=== PATIENT | male | born 1955 | race Caucasian/White ===

== ENCOUNTER 2024-10-11 09:22 | Emergency (ER) | payer MEDICARE, OTHER, SELFPAY ==
[2024-10-11 09:34] VITALS: BP 167/97; PULSE 86; TEMP 36.8; O2SAT 95; BMI 26.6
--- NOTE | 2024-10-11 09:41 | ECG_ITS ---
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 Measurements Intervals [place] Rate: 88 P: 17 PA: 148 QRS: 26 QRSD: 82 T: 47 QT: 328 QTc: 373 Interpretive Statements 1100 Sinus rhythm 4068 Nonspecific Twave abnormality Abnormal ECG Compared to ECG 01/19/2019 22:28:14 Sinus tachycardia no longer present ST (T wave) deviation no longer present Electronically Signed On 10-11-2024 11:56:11 EDT by GABI SHANNON M.D.
--- NOTE | 2024-10-11 09:41 | XR_ITS ---
The [place] [id number] Patient Name: LESLIE MAN MRN: [id number] date: 1955 Sex: M Assigned Patient Location: ER Current Patient Location: ER Accession/Order Number: [id number] Exam Date: 10/11/2024 10:09 Report Date: 10/11/2024 10:12 At the request of: AMAN PERALES MD Procedure: XR chest 1V PORTABLE AP ERECT CHEST 0947 hours CLINICAL HISTORY: Weakness COMPARISON: Chest CT 01/12/2019 and chest x-ray 01/19/2019 The heart is within normal limits. There is no vascular congestion. The lungs, as visualized, are clear. There is no effusion or pneumothorax. The osseous structures are intact. XR/XR chest 1V IMPRESSION: NO ACUTE FINDINGS Impression dictated by: Apurva Velarde M.D.10/11/2024 10:12 AM Dictation Location: [place] [address] Electronically authenticated by: [id number] Y Date: 10/11/2024 10:12
--- NOTE | 2024-10-11 09:42 | ED.GENADUL1 ---
HPI HPI - General Adult General Chief complaint: Weakness Stated complaint: weakness Time Seen by Provider: 10/11/24 09:24 Source: patient Mode of arrival: walk-in History of Present Illness HPI narrative: 69-year-old male presents for generalized weakness. It began last night. His checked his temperature during the middle of the night and it was 100.8. He does not have a cough or chest pain. No abdominal pain vomiting or diarrhea. No dysuria or hematuria. He states his whole body just feels weak. His is not ill. He does not have any pain anywhere. Related Data Home Medications ?Medication ?Instructions ?Recorded ?Confirmed aspirin 81 mg tablet,delayed 81 mg PO DAILY 10/11/24 10/11/24 release (Adult Aspirin Regimen) bisoprolol 5 1 tab PO DAILY 10/11/24 10/11/24 mg-hydrochlorothiazide 6.25 mg tablet coenzyme Q10 100 mg capsule (Co 100 mg PO DAILY 10/11/24 10/11/24 Q-10) ezetimibe 10 mg tablet 10 mg PO DAILY 10/11/24 10/11/24 glipizide 10 mg tablet, extended 10 mg PO DAILY 10/11/24 10/11/24 release 24 hr losartan 100 mg tablet 100 mg PO DAILY 10/11/24 10/11/24 metformin 1,000 mg tablet 1,000 mg PO BID 10/11/24 10/11/24 mometasone-formoterol HFA 100 2 inh inhalation Q12H 10/11/24 10/11/24 mcg-5 mcg/actuation aerosol inhaler (Dulera) montelukast 10 mg tablet 10 mg PO DAILY 10/11/24 10/11/24 omeprazole 40 mg capsule,delayed 40 mg PO DAILY 10/11/24 10/11/24 release prednisone 10 mg tablet 10 mg PO Q12H 10/11/24 10/11/24 Allergies Allergy/AdvReac Type Severity Reaction Status Date / Time [id number] Reductase AdvReac Muscle Pain Verified 10/11/24 09:30 Inhibitor Opioid HPI Opioid Management Most Recent Opioid Data: No Data to Display Review of Systems ROS Narrative A ten point review of systems is negative except as noted above. PFSH PFSH Social History Little interest or pleasure in doing things: not at all Feeling down, depressed, or hopeless: not at all Exam Narrative Exam Narrative: Nurses note and vital signs reviewed and patient is not hypoxic. General: The patient appears well and in no apparent distress. Patient is resting comfortably on cart. Skin: Warm, dry, no pallor noted. There is no rash noted. Head: Normocephalic, atraumatic Eye: Normal conjunctiva, no drainage Ears, Nose, Mouth, and Throat: oral mucosa is moist. Nares patent. Cardiovascular: Regular Rate and Rhythm Respiratory: Patient is in no distress, no accessory muscle use, lungs are clear to auscultation, no wheezing, rales or rhonchi Back: non-tender GI: Soft and nontender Musculoskeletal: The patient has no evidence of calf tenderness, no pitting edema, symmetrical pulses noted bilaterally Neurological: A&O, normal speech Psychiatric: Cooperative Constitutional Vital Signs, click to edit/add: Last Vital Signs Temp 98.2 F 10/11/24 09:34 Pulse 86 10/11/24 09:34 Resp 20 10/11/24 09:34 BP 167/97 H 10/11/24 09:34 Pulse Ox 95 10/11/24 09:34 O2 Del Method Room Air 10/11/24 09:34 Course Vital Signs Vital signs: Vital Signs Temperature 98.2 F 10/11/24 09:34 Pulse Rate 86 10/11/24 09:34 Respiratory Rate 20 10/11/24 09:34 Blood Pressure 167/97 H 10/11/24 09:34 Pulse Oximetry 95 10/11/24 09:34 Oxygen Delivery Method Room Air 10/11/24 09:34 Temperature 98.2 F 10/11/24 09:34 Pulse Rate 86 10/11/24 09:34 Respiratory Rate 20 10/11/24 09:34 Blood Pressure 167/97 H 10/11/24 09:34 Pulse Oximetry 95 10/11/24 09:34 Oxygen Delivery Method Room Air 10/11/24 09:34 Medical Decision Making MDM Narrative Medical decision making narrative: His workup here is negative. COVID and influenza test are negative as is his urinalysis and white blood cell count and chest x-ray. At this point my clinical impression is that he has a viral illness. Treatment diagnosis and follow-up were discussed with the patient and his . Differential Diagnosis Differential Diagnosis: Viral illness, pneumonia, UTI, COVID, influenza Lab Data Lab results reviewed: Yes I reviewed the patient's lab results Labs: Lab Results 10/11/24 10/11/24 Range/Units 09:50 11:05 WBC 5.7 (4.0-11.0) 10^3/uL RBC 4.88 (4.70-6.10) 10^6/uL Hgb 14.1 (14.0-18.0) g/dL Hct 40.3 L (42.0-54.0) % MCV 82.6 (80.0-94.0) fL MCH 28.9 (25.9-34.0) pg MCHC 35.0 (29.9-35.2) g/dL RDW 12.8 (11.0-15.0) % Plt Count 124 L (150-450) 10^3/uL MPV 8.6 L (9.5-13.5) fL Neut % (Auto) 76.8 H (43.0-75.0) % Lymph % (Auto) 9.3 L (20.5-60.0) % [place] % (Auto) 10.7 (1.7-12.0) % Eos % (Auto) 0.0 L (0.9-7.0) % Baso % (Auto) 0.4 (0.2-2.0) % Neut # (Auto) 4.4 (1.4-6.5) 10^3/uL Lymph # (Auto) 0.5 L (1.2-3.8) 10^3/uL [place] # (Auto) 0.6 (0.3-0.8) 10^3/uL Eos # (Auto) 0.0 (0.0-0.7) 10^3/uL Baso # (Auto) 0.0 (0.0-0.1) 10^3/uL Abs Immat Gran (auto) 0.16 H (0.00-0.03) 10^3/uL Imm/Tot Granulo (auto) 2.8 H (0.0-0.5) % Sodium 138 (136-145) mmol/L Potassium 3.9 (3.5-5.1) mmol/L Chloride 102 (98-107) mmol/L Carbon Dioxide 27.4 (21.0-32.0) mmol/L Anion Gap 12.5 BUN 27.0 H (7.0-18.0) mg/dL Creatinine 1.33 H (0.70-1.30) mg/dL Est GFR ( Amer) >60 (>=60 mL/min/1.73m^2) Est GFR (Non-Af Amer) 53 L (>=60 mL/min/1.73m^2) BUN/Creatinine Ratio 20.3 Glucose 125 H (74-106) mg/dL Calcium 9.5 (8.5-10.1) mg/dL Urine Color Yellow (YELLOW) Urine Clarity Clear (CLEAR) Urine pH 6.0 (5.0-9.0) Ur Specific [place] 1.020 (1.005-1.025) Urine Protein 30 A (NEG/TRACE) mg/dL Urine Glucose (UA) Negative (NEGATIVE) mg/dL Urine Ketones Trace A (NEGATIVE) mg/dL Urine Occult Blood Trace-i (NEGATIVE) Urine Nitrite Negative (NEGATIVE) Urine Bilirubin Negative (NEGATIVE) Urine Urobilinogen 2.0 A (0.2-1.0) EU/dL Ur Leukocyte Esterase Negative (NEGATIVE) Influenza Type A Ag Negative Influenza Type B Ag Negative SARS-CoV-2 Ag (CV2AG) Negative (NEGATIVE) Imaging Data Chest x-ray: Radiologist's impression: ITS Impressions Chest X-Ray 10/11/24 09:41 IMPRESSION: NO ACUTE FINDINGS Impression dictated by: Apurva Velarde M.D.10/11/2024 10:12 AM Dictation Location: [place] [address] Electronically authenticated by: [id number] Y Date: 10/11/2024 10:12 ECG Data Attestation: I personally reviewed and interpreted this ECG as follows: (EKG on my interpretation shows sinus rhythm with rate of 88 and no acute change) Discharge Plan Discharge Chief Complaint: Weakness Clinical Impression: Viral illness Patient Disposition: Home, Self-Care Time of Disposition Decision: 11:23 Condition: Good Mode of Transportation: Private Vehicle Prescriptions / Home Meds: No Action bisoprolol-hydrochlorothiazide 5-6.25 mg tablet 1 tab PO DAILY ezetimibe 10 mg tablet 10 mg PO DAILY glipizide 10 mg tablet extended release 24hr 10 mg PO DAILY losartan 100 mg tablet 100 mg PO DAILY metformin 1,000 mg tablet 1,000 mg PO BID Dulera 100-5 mcg/actuation HFA aerosol inhaler 2 inh INHALATION Q12H montelukast 10 mg tablet 10 mg PO DAILY omeprazole 40 mg capsule,delayed release(DR/EC) 40 mg PO DAILY prednisone 10 mg tablet 10 mg PO Q12H Rx Instructions: for 21 days for inflammation in foot aspirin [Adult Aspirin Regimen] 81 mg tablet,delayed release (DR/EC) 81 mg PO DAILY coenzyme Q10 [Co Q-10] 100 mg capsule 100 mg PO DAILY Print Language: Lithuanian Instructions: Viral Syndrome (ED) Referrals: CHECO SWAN [Primary Care Provider] - 1 week
[2024-10-11] MEDS: 0.9 % SODIUM CHLORIDE 1,000 ML 1000 ML IV (09:58)
[2024-10-11] MEDS: ONDANSETRON PF 4 MG/2 ML VIAL IV (09:59)
[2024-10-11 10:03] LABS: Basophils Percent Auto 0.4 % (0.2-2.0); Hematocrit 40.3 % (42.0-54.0); Hemoglobin 14.1 g/dL (14.0-18.0); Immature Granulocytes Abs Auto 0.16 10^3/uL (0.00-0.03); Immature Granulocytes Pct Auto 2.8 % (0.0-0.5); Lymphocytes Absolute Auto 0.5 10^3/uL (1.2-3.8); Lymphocytes Percent Auto 9.3 % (20.5-60.0); Mean Corpuscular Hemoglobin 28.9 pg (25.9-34.0); Mean Corpuscular Volume 82.6 fL (80.0-94.0); Mean Platelet Volume 8.6 fL (9.5-13.5); Monocytes Absolute Auto 0.6 10^3/uL (0.3-0.8); Monocytes Percent Auto 10.7 % (1.7-12.0); Neutrophils Absolute Auto 4.4 10^3/uL (1.4-6.5); Neutrophils Percent Auto 76.8 % (43.0-75.0); Platelet Count 124 10^3/uL (150-450); Red Blood Count 4.88 10^6/uL (4.70-6.10); Red Cell Distribution Width 12.8 % (11.0-15.0); White Blood Count 5.7 10^3/uL (4.0-11.0)
[2024-10-11 10:14] LABS: Anion Gap 12.5; BUN Creatinine Ratio 20.3; Calcium 9.5 mg/dL (8.5-10.1); Carbon Dioxide 27.4 mmol/L (21.0-32.0); Chloride 102 mmol/L (98-107); Estimated GFR (African America >60 (>=60 mL/min/1.73m^2); Estimated GFR (Non-African Ame 53 (>=60 mL/min/1.73m^2); Glucose 125 mg/dL (74-106); Potassium 3.9 mmol/L (3.5-5.1); Sodium 138 mmol/L (136-145)
[2024-10-11 10:17] LABS: Influenza Virus A Antigen Negative; Influenza Virus B Antigen Negative; Internal Control Within Normal Limits; SARS-CoV-2 Ag NEGATIVE (NEGATIVE)
[2024-10-11 11:12] LABS: Bilirubin Urine NEGATIVE (NEGATIVE); Blood Urine TRACE-I (NEGATIVE); Clarity Urine CLEAR (CLEAR); Color Urine YELLOW (YELLOW); Glucose Urine UA NEGATIVE (NEGATIVE); Ketones Urine TRACE mg/dL (NEGATIVE); Leukocyte Esterase Urine NEGATIVE (NEGATIVE); Nitrite Urine NEGATIVE (NEGATIVE); Protein Urine 30 mg/dL (NEG/TRACE)
[2024-10-11 11:28] LABS: Bacteria Urine NONE SEEN #/HPF (NONE SEEN); Cast Seen? NONE SEEN #/LPF (NONE SEEN); Crystals Seen? None Seen #/HPF (None Seen); Mucus Urine NONE SEEN (NONE SEEN); Squamous Epithelial Cell Urine NONE SEEN #/LPF (NONE/RARE); Urine Culture Indicated NO; WBC Urine 0-2 #/HPF (NONE SEEN)
== END 2024-10-11 11:32 | disposition home or self-care (01) ==
PROVIDERS: Emergency Provider Emergency Medicine; PCP Family Medicine
DX: B34.9 Viral infection, unspecified (principal)
CPT/HCPCS: 36415; 71045; 80048; 81001; 85025; 87804; 87811; 93005; 96374; 99285; J2405

== ENCOUNTER 2024-10-11 18:23 | Observation (INO) | payer MEDICARE, OTHER, SELFPAY ==
[2024-10-11] VITALS (23 sets, daily range): BP systolic 120–168; BP diastolic 61–99; PULSE 81–129; TEMP 36.6–37.1; O2SAT 91–95; BMI 28.1; BMI 27.8
--- NOTE | 2024-10-11 18:40 | ECG_ITS ---
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 Measurements Intervals [place] Rate: 95 P: 36 [place]: 130 QRS: 36 QRSD: 82 T: 55 QT: 314 QTc: 367 Interpretive Statements 1100 Sinus rhythm 9110 normal ECG Compared to ECG 10/11/2024 09:54:09 Nonspecific Twave abnormality is less evident Electronically Signed On 10-12-2024 14:36:30 EDT by GABI SHANNON M.D.
--- NOTE | 2024-10-11 18:45 | PC.NURSE ---
pt seen earlier for same complaint. but states he got home and weakness increased. states he couldn't get out of his chair at home and pee'd himself d/y not being able to make it to bathroom. denies any pain anywhere. denies any SOB, CP, vomiting or diarrhea. just feels tired . no fever at this time.
--- NOTE | 2024-10-11 18:53 | ED_ITS ---
HPI - Weakness General Chief complaint: Weakness Stated complaint: WEAKNESS Time Seen by Provider: 10/11/24 18:31 Source: patient Mode of arrival: ambulance History of Present Illness HPI Narrative: 69-year-old male presents to the emergency room with a chief complaint of weakness. Patient was brought to emergency room by squad. Patient was seen here earlier this morning had a complete workup including troponin, COVID, influenza and routine blood work. He was discharged home with diagnosis of viral illness. He states when he got home he got progressively more weak he feels ill and has chills. He had a low-grade fever at home subjectively of 100. He was afebrile here and afebrile upon arrival mission to the hospital this afternoon as well. He was brought in by squad. He states he was so weak he was unable to get up to urinate at home earlier today. Past medical includes type 2 diabetes and hypertension. Vital signs are stable here initially. He is alert and oriented. MD Complaint: Reports generalized weakness Related Data Home Medications ?Medication ?Instructions ?Recorded ?Confirmed aspirin 81 mg tablet,delayed 81 mg PO DAILY 10/11/24 10/11/24 release (Adult Aspirin Regimen) bisoprolol 5 1 tab PO DAILY 10/11/24 10/11/24 mg-hydrochlorothiazide 6.25 mg tablet coenzyme Q10 100 mg capsule (Co 100 mg PO DAILY 10/11/24 10/11/24 Q-10) ezetimibe 10 mg tablet 10 mg PO DAILY 10/11/24 10/11/24 glipizide 10 mg tablet, extended 10 mg PO DAILY 10/11/24 10/11/24 release 24 hr losartan 100 mg tablet 100 mg PO DAILY 10/11/24 10/11/24 metformin 1,000 mg tablet 1,000 mg PO BID 10/11/24 10/11/24 mometasone-formoterol HFA 100 2 inh inhalation Q12H 10/11/24 10/11/24 mcg-5 mcg/actuation aerosol inhaler (Dulera) montelukast 10 mg tablet 10 mg PO DAILY 10/11/24 10/11/24 omeprazole 40 mg capsule,delayed 40 mg PO DAILY 10/11/24 10/11/24 release prednisone 10 mg tablet 10 mg PO Q12H 10/11/24 10/11/24 Allergies Allergy/AdvReac Type Severity Reaction Status Date / Time [id number] Reductase AdvReac Muscle Pain Verified 10/11/24 09:30 Inhibitor Review of Systems ROS Status of ROS 10 or more systems reviewed and unremark able except as noted in history and below PFSH PFSH Social History Little interest or pleasure in doing things: not at all Feeling down, depressed, or hopeless: not at all Exam Narrative Exam Narrative: All Systems are negative except as noted/marked.All systems reviewed and otherwise negative Nurses note and vital signs reviewed and patient is not hypoxic. General: The patient appears ill, nonseptic. Patient is resting comfortably on cart. Skin: Warm, dry, no pallor noted. There is no rash noted. Head: Normocephalic, atraumatic Eye: Normal conjunctiva, no drainage, EOMI. PERRL Ears, Nose, Mouth, and Throat: oral mucosa is moist. Nares patent. Mouth without vesicles. Ear canals patent. Tm's without Erythema Cardiovascular: Regular Rate and Rhythm Respiratory: Patient is in no distress, no accessory muscle use, lungs are clear to auscultation, no wheezing, rales or rhonchi Back: non-tender, no CVA tenderness bilaterally to percussion. GI: Normal bowel sounds, no tenderness to palpation, no masses appreciated. No rebound, guarding, or rigidity noted. Musculoskeletal: The patient has no evidence of calf tenderness, no pitting edema, symmetrical pulses noted bilaterally Neurological: A&O x4, normal speech Psychiatric: Cooperative Constitutional Vital Signs, click to edit/add: Last Vital Signs Temp 98.7 F 10/11/24 18:24 Pulse 106 H 10/11/24 18:24 Resp 18 10/11/24 18:24 BP 155/97 H 10/11/24 18:24 Pulse Ox 93 L 10/11/24 18:24 O2 Del Method Room Air 10/11/24 18:24 Course Vital Signs Vital signs: Vital Signs Temperature 98.7 F 10/11/24 18:24 Pulse Rate 106 H 10/11/24 18:24 Respiratory Rate 18 10/11/24 18:24 Blood Pressure 155/97 H 10/11/24 18:24 Pulse Oximetry 93 L 10/11/24 18:24 Oxygen Delivery Method Room Air 10/11/24 18:24 Temperature 98.7 F 04/18/25 18:24 Pulse Rate 106 H 10/11/24 18:24 Respiratory Rate 18 10/11/24 18:24 Blood Pressure 155/97 H 10/11/24 18:24 Pulse Oximetry 93 L 10/11/24 18:24 Oxygen Delivery Method Room Air 10/11/24 18:24 MDM - Weakness MDM Narrative Medical decision making narrative: 69-year-old male presents to the emergency room with a chief complaint of weakness. Patient was brought to emergency room by squad. Patient was seen here earlier this morning had a complete workup including troponin, COVID, influenza and routine blood work. He was discharged home with diagnosis of viral illness. He states when he got home he got progressively more weak he feels ill and has chills. He had a low-grade fever at home subjectively of 100. He was afebrile here and afebrile upon arrival mission to the hospital this afternoon as well. He was brought in by squad. He states he was so weak he was unable to get up to urinate at home earlier today. Past medical includes type 2 diabetes and hypertension. Vital signs are stable here initially. He is alert and oriented. Patient was brought to the emergency room by squad for a second visit here today. Blood work was repeated. BUN and creatinine are elevated. sodium sodium decreased from 138-135 from being here earlier today. Were also drawn and continue to be negative EKG was negative here as well chest x-ray was not r epeated I did review the chest x-ray from earlier this morning does not appear to have any infiltrates was read negative by radiology. Patient will be admitted for dehydration hyponatremia and weakness. He was given a repeat dose of fluids here in the emergency room. Patient will be admitted to the floor in telemetry. Follow-up with hospitalist. Did speak to Kaitlynn concerning this patient's care. Patient and family was agree with plan of care. Patient is currently stable afebrile. Differential Diagnosis Differential diagnosis: Likely dehydration and other Medical Records Attestation: I reviewed the patient's medical records. Lab Data Attestation: I reviewed the patient's lab results. Labs: Lab Results 10/11/24 Range/Units 18:47 WBC 5.6 (4.0-11.0) 10^3/uL RBC 4.72 (4.70-6.10) 10^6/uL Hgb 13.5 L (14.0-18.0) g/dL Hct 39.0 L (42.0-54.0) % MCV 82.6 (80.0-94.0) fL MCH 28.6 (25.9-34.0) pg MCHC 34.6 (29.9-35.2) g/dL RDW 13.0 (11.0-15.0) % Plt Count 112 L (150-450) 10^3/uL MPV 8.8 L (9.5-13.5) fL Seg Neuts % (Manual) 81.0 H (43.0-75.0) Band Neutrophils % 2.0 (0-5) % Lymphocytes % (Manual) 7.0 L (20.5-60.0) % Monocytes % (Manual) 9.0 (1.7-12.0) % Eosinophils % (Manual) 0.0 L (0.9-7.0) % Basophils % (Manual) 0.0 L (0.2-2.0) % Metamyelocytes % 1.0 Neutrophils # (Manual) 4.53 (1.4-6.5) 10^3/uL Band Neutrophils # 0.1 (0.0-0.3) 10^3/uL Lymphocytes # (Manual) 0.39 L (1.20-3.80) 10^3/uL Monocytes # (Manual) 0.50 (0.30-0.80) 10^3/uL Eosinophils # (Manual) 0.00 (0.00-0.70) 10^3/uL Basophils # (Manual) 0.00 (0.00-0.10) 10^3/uL Metamyelocytes # 0.05 PT 11.8 H (9.0-11.6) sec INR 1.13 APTT 25.8 (22.3-36.2) sec Sodium 135 L (136-145) mmol/L Potassium 4.0 (3.5-5.1) mmol/L Chloride 100 (98-107) mmol/L Carbon Dioxide 26.1 (21.0-32.0) mmol/L Anion Gap 12.9 BUN 26.0 H (7.0-18.0) mg/dL Creatinine 1.34 H (0.70-1.30) mg/dL Est GFR ( Amer) >60 (>=60 mL/min/1.73m^2) Est GFR (Non-Af Amer) 53 L (>=60 mL/min/1.73m^2) BUN/Creatinine Ratio 19.4 Glucose 169 H (74-106) mg/dL Lactate 0.9 (0.4-2.0) mmol/L Calcium 8.9 (8.5-10.1) mg/dL Total Bilirubin 1.0 (0.2-1.0) mg/dL AST 22 (15-37) U/L ALT 30 (16-63) U/L Alkaline Phosphatase 63 (46-116) U/L Troponin I High Sens 7.7 (4.0-76.1) pg/mL NT-Pro-B Natriuret Pep 488.0 (<=900.0) pg/mL Total Protein 6.5 (6.4-8.2) g/dL Albumin 3.5 (3.4-5.0) g/dL Globulin 3.0 g/dL Albumin/Globulin Ratio 1.2 ECG Data Attestation: ?I have reviewed the pertinent ECG results. Interpretation: 1852 sinus rhythm with a rate of 95 bpm UT interval 130 ms QRS duration [address] elevation or depression no STEMI Discharge Plan Discharge Chief Complaint: Weakness Clinical Impression: Viral illness, Dehydration, Weakness, Acute hyponatremia Patient Disposition: Admitted as Observation Time of Disposition Decision: 19:58 Condition: Fair
[2024-10-11 19:02] LABS: Hemoglobin 13.5 g/dL (14.0-18.0); Mean Corpuscular HGB Conc 34.6 g/dL (29.9-35.2); Mean Corpuscular Hemoglobin 28.6 pg (25.9-34.0); Mean Corpuscular Volume 82.6 fL (80.0-94.0); Mean Platelet Volume 8.8 fL (9.5-13.5); Platelet Count 112 10^3/uL (150-450); Red Blood Count 4.72 10^6/uL (4.70-6.10); White Blood Count 5.6 10^3/uL (4.0-11.0)
[2024-10-11 19:09] LABS: Alanine Aminotransferase 30 U/L (16-63); Albumin Globulin Ratio 1.2; Albumin Level 3.5 g/dL (3.4-5.0); Alkaline Phosphatase 63 U/L (46-116); Anion Gap 12.9; Aspartate Amino Transferase 22 U/L (15-37); BUN Creatinine Ratio 19.4; Calcium 8.9 mg/dL (8.5-10.1); Carbon Dioxide 26.1 mmol/L (21.0-32.0); Chloride 100 mmol/L (98-107); Estimated GFR (African America >60 (>=60 mL/min/1.73m^2); Estimated GFR (Non-African Ame 53 (>=60 mL/min/1.73m^2); Glucose 169 mg/dL (74-106); Sodium 135 mmol/L (136-145); Total Protein 6.5 g/dL (6.4-8.2); Troponin I High Sensitivity 7.7 pg/mL (4.0-76.1)
[2024-10-11 19:11] LABS: Lactate/Lactic Acid 0.9 mmol/L (0.4-2.0)
[2024-10-11 19:16] LABS: Band Neutrophils Absolute 0.1 10^3/uL (0.0-0.3); INR 1.13; Lymphocytes Absolute Manual 0.39 10^3/uL (1.20-3.80); Metamyelocytes Absolute Manual 0.05; Partial Thromboplastin Time 25.8 sec (22.3-36.2); Prothrombin Time 11.8 sec (9.0-11.6); Segmented Neut Absolute Manual 4.53 10^3/uL (1.4-6.5)
[2024-10-11] MEDS: 0.9 % SODIUM CHLORIDE 1,000 ML 1000 ML IV (19:36)
[2024-10-11] MEDS: ALBUTEROL SULFATE 2.5 MG/3 ML VIAL NEB IH (23:15)
[2024-10-11] MEDS: BUDESONIDE 0.5 MG/2 ML AMPULE NEB IH (23:16)
[2024-10-12] VITALS (8 sets, daily range): BP systolic 130; BP diastolic 75–77; PULSE 80–93; TEMP 36.8; O2SAT 90–95
[2024-10-12 01:05] LABS: Glucometer 117 mg/dL (74-106)
[2024-10-12] MEDS: ALBUTEROL SULFATE 2.5 MG/3 ML VIAL NEB IH (04:08)
[2024-10-12 06:15] LABS: Hematocrit 34.8 % (42.0-54.0); Hemoglobin 11.8 g/dL (14.0-18.0); Mean Corpuscular HGB Conc 33.9 g/dL (29.9-35.2); Mean Corpuscular Hemoglobin 28.5 pg (25.9-34.0); Mean Corpuscular Volume 84.1 fL (80.0-94.0); Mean Platelet Volume 8.9 fL (9.5-13.5); Platelet Count 89 10^3/uL (150-450); Red Blood Count 4.14 10^6/uL (4.70-6.10); Red Cell Distribution Width 13.1 % (11.0-15.0); White Blood Count 4.8 10^3/uL (4.0-11.0)
[2024-10-12 06:21] LABS: Anion Gap 12.9; BUN Creatinine Ratio 16.3; Calcium 7.8 mg/dL (8.5-10.1); Carbon Dioxide 28.2 mmol/L (21.0-32.0); Chloride 102 mmol/L (98-107); Estimated GFR (African America >60 (>=60 mL/min/1.73m^2); Estimated GFR (Non-African Ame 58 (>=60 mL/min/1.73m^2); Glucose 116 mg/dL (74-106); Potassium 4.1 mmol/L (3.5-5.1); Sodium 139 mmol/L (136-145)
[2024-10-12 07:14] LABS: Glucometer 110 mg/dL (74-106)
[2024-10-12] MEDS: 0.9 % SODIUM CHLORIDE 1,000 ML 100 ML IV ×2 (08:33)
[2024-10-12] MEDS: EZETIMIBE 10 MG TABLET PO (08:34)
[2024-10-12] MEDS: MONTELUKAST SODIUM 10 MG TABLET PO (08:34)
[2024-10-12] MEDS: PANTOPRAZOLE SODIUM 40 MG TABLET.DR PO (08:34)
[2024-10-12] MEDS: LOSARTAN POTASSIUM 50 MG TABLET 100 MG PO (08:34)
[2024-10-12] MEDS: ASPIRIN 81 MG TABLET.DR PO (08:34)
--- NOTE | 2024-10-12 11:42 | PC.NURSE ---
tele and iv dc'd for discharge. instructions given to both pt and , both verbalized understanding. pt getting dressed
--- NOTE | 2024-10-12 16:38 | P.HP_ITS ---
HPI H&P: HPI History of Present Illness Chief complaint: WEAKNESS, DEHYDRATION, HYPONATREMIA Narrative: HPI and Hospital Course: 69-year-old male presented to ED with generalized weakness, cough, shortness of breath and fevers at home. Patient was evaluated earlier in the ED and had un remarkable workup and was sent home. However upon returning home, he felt really weak and was unable to get out of bed so was brought over to ED again. Workup in the ED revealed acute renal insufficiency but no significant metabolic/electrolyte abnormalities were noted. Patient was admitted for observation and started on IV hydration along with Zofran as needed. Upon evaluation, he was noted to have mild wheezing on exam. He quickly improved during hospital stay and felt well enough to go home. Patient was educated on worrisome signs and symptoms and was instructed to return to ED if his symptoms worsen. Patient was also asked to follow-up with PCP in 1 week. He was discharged on oral Zofran, prednisone along with azithromycin. Discharge disposition: Home Discharge status: Home Opioid HPI Opioid Management Most Recent Pain and Opioid Data: Last Pain Scale 0 10/12/24 10:54 10/12/24 Last Pain Intensity 0 10/12/24 10:54 10/12/24 Last Pain Assessment 10/12/24 11:00 Last ORT Total Score 0 10/11/24 20:55 10/11/24 Last ORT Risk Category Low Risk 10/11/24 20:55 10/11/24 Review of Systems ROS Status of ROS 10 or more systems reviewed and unremark able except as noted in history and below [facility] Medical History (Updated 10/14/24 @ 10:32 by Shaikh Shane MD) HLD (hyperlipidemia) ?E78.5 - Hyperlipidemia, unspecified (ICD-10) Type 2 diabetes mellitus ?E11.9 - Type 2 diabetes mellitus without complications (ICD-10) Asthma ?J45.909 - Unspecified asthma, uncomplicated (ICD-10) Prostate cancer ?C61 - Malignant neoplasm of prostate (ICD-10) Hypertension ?I10 - Essential (primary) hypertension (ICD-10) Family History (Updated 10/12/24 @ 06:11 by Luis Antonio Villatoro RN) Father Family history of CHF (congestive heart failure) Family history of myocardial infarction Family history of stroke Mother Muscular dystrophy Social History Highest level of school completed/degree received: high school graduate Little interest or pleasure in doing things: not at all Feeling down, depressed, or hopeless: not at all Meds Home Medications and Allergies Home Medications ?Medication ?Instructions ?Recorded ?Confirmed ?Type aspirin 81 mg tablet,delayed 81 mg PO DAILY 10/11/24 10/12/24 History release (Adult Aspirin Regimen) bisoprolol 5 1 tab PO DAILY 10/11/24 10/12/24 History mg-hydrochlorothiazide 6.25 mg tablet coenzyme Q10 100 mg capsule (Co 100 mg PO DAILY 10/11/24 10/12/24 History Q-10) ezetimibe 10 mg tablet 10 mg PO DAILY 10/11/24 10/12/24 History glipizide 10 mg tablet, extended 10 mg PO DAILY 10/11/24 10/12/24 History release 24 hr losartan 100 mg tablet 100 mg PO DAILY 10/11/24 10/12/24 History metformin 1,000 mg tablet 1,000 mg PO BID 10/11/24 10/12/24 History mometasone-formoterol HFA 100 2 inh inhalation Q12H 10/11/24 10/12/24 History mcg-5 mcg/actuation aerosol inhaler (Dulera) montelukast 10 mg tablet 10 mg PO DAILY 10/11/24 10/12/24 History omeprazole 40 mg capsule,delayed 40 mg PO DAILY 10/11/24 10/12/24 History release prednisone 10 mg tablet 10 mg PO Q12H 10/11/24 10/12/24 History albuterol sulfate 90 mcg/actuation 2 inh inhalation Q6H PRN shortness 10/12/24 Rx aerosol inhaler of breath or wheezing #6.7 grams azithromycin 250 mg tablet See Rx Instructions PO .COMPLEX #6 10/12/24 Rx tabs ondansetron 4 mg disintegrating 4 mg PO Q6H PRN nausea and 10/12/24 Rx tablet vomiting #10 tabs prednisone 20 mg tablet 20 mg PO BID #10 tabs 10/12/24 Rx Allergies Allergy/AdvReac Type Severity Reaction Status Date / Time [id number] Reductase AdvReac Muscle Pain Verified 10/11/24 09:30 Inhibitor Exam Constitutional Vital Signs, click to edit/add: Last Vital Signs Temp 98.2 F 10/12/24 07:30 Pulse 83 10/12/24 10:00 Resp 18 10/12/24 07:30 BP 130/77 10/12/24 07:30 Pulse Ox 90 L 10/12/24 07:30 O2 Del Method Room Air 10/12/24 07:36 Documenting provider has reviewed patient's vital signs: yes Common normals: no apparent distress and oriented x3 General appearance: cooperative HENMT Common normals: normocephalic and head/scalp atraumatic Head and scalp: normocephalic and atraumatic Eye Common normals: conjunctivae normal and no scleral icterus Conjunctiva: conjunctiva(e) normal Respiratory Common normals: normal respiratory effort Effort & inspection: able to speak in complete sentences Auscultation: wheezes right lower Cardio Common normals: regular rate, S1 normal heart sound and S2 normal heart sound Rate: regular rate Heart sounds: S1 normal and S2 normal GI Common normals: Normal to inspection, nondistended, normoactive bowel sounds present, soft to palpation, non-tender and no hepatosplenomegaly Palpation: soft and no hepatosplenomegaly Extremity Common normals: no clubbing, cyanosis or edema Neuro Common normals: oriented x3, moves all extremities and no focal motor deficits Psych Common normals: mental status grossly normal, denies hallucinations, denies homicidal ideation and denies suicidal ideation Results Labs Labs: Short CBC 10/11/24 10/12/24 Range/Units 18:47 05:51 WBC 5.6 4.8 (4.0-11.0) 10^3/uL Hgb 13.5 L 11.8 L (14.0-18.0) g/dL Hct 39.0 L 34.8 L (42.0-54.0) % Plt Count 112 L 89 L (150-450) 10^3/uL BMP 10/11/24 10/12/24 18:47 05:51 Sodium 135 L 139 Potassium 4.0 4.1 Chloride 100 102 Carbon Dioxide 26.1 28.2 BUN 26.0 H 20.0 H Creatinine 1.34 H 1.23 Glucose 169 H 116 H Calcium 8.9 7.8 L Liver Function 10/11/24 Range/Units 18:47 Total Bilirubin 1.0 (0.2-1.0) mg/dL AST 22 (15-37) U/L ALT 30 (16-63) U/L Alkaline Phosphatase 63 (46-116) U/L Albumin 3.5 (3.4-5.0) g/dL Assessment and Plan Assessment and Plan (1) Asthma exacerbation: Qualifiers: Asthma severity: moderate Asthma persistence: persistent Qualified Code(s): J45.41 - Moderate persistent asthma with (acute) exacerbation (2) Dehydration: (3) Viral illness: (4) Weakness: (5) Acute renal insufficiency: (6) Hypertension: Qualifiers: Hypertension type: primary hypertension Qualified Code(s): I10 - Essential (primary) hypertension (7) Type 2 diabetes mellitus: Qualifiers: Diabetes mellitus nursing home insulin use: without nursing home use Diabetes mellitus complication status: without complication Qualified Code(s): E11.9 - Type 2 diabetes mellitus without complications (8) HLD (hyperlipidemia): Qualifiers: Hyperlipidemia type: unspecified Qualified Code(s): E78.5 - Hyperlipidemia, unspecified Plan Patient was treated with IV hydration during the hospital course. She clinically improved and improvement in her symptoms. His renal function improved with IV hydration overnight. Patient medically stable for discharge. He was instructed to hold bisoprolol/hydrochlorothiazide for 1 week. Patient was discharged on oral prednisone along with azithromycin for presumed viral URI resulting in mild asthma exacerbation. Patient was educated on worrisome signs and symptoms and was instructed to return to ED if he had worsening symptoms. Patient was also instructed to follow-up with PCP in 1 to 2 weeks.
--- NOTE | 2024-10-14 15:08 | CM.DCFOLLOWU ---
Person spoke with: Uvaldo How are you feeling? Much better How is your pain? No pain Did you understand your discharge instructions? Yes Do you have any questions about your discharge instructions? No Were you given any prescriptions at discharge? Yes Were you able to get your prescriptions filled? Yes Do you understand how to take your medications as ordered? Yes Do you have any questions about your follow up appointment and do you plan to keep your follow up appointment? I will call and schedule today Is there anything else that you would like to discuss? No Questions/Comments/Concerns/Other:
== END 2024-10-12 11:49 | disposition home or self-care (01) ==
LOC: ER 20:38 → MS 20:43
PROVIDERS: Physician Assistant; Registered Nurse; Admitting Provider Family Medicine; Emergency Provider Emergency Medicine; PCP Family Medicine; Visit Provider Family Medicine
DX: E86.0 Dehydration (principal); E87.1 Hypo-osmolality and hyponatremia; R53.1 Weakness; B34.9 Viral infection, unspecified; E11.9 Type 2 diabetes mellitus without complications; I10 Essential (primary) hypertension; Z79.84 Long term (current) use of oral hypoglycemic drugs; R06.02 Shortness of breath; J45.41 Moderate persistent asthma with (acute) exacerbation; N28.9 Disorder of kidney and ureter, unspecified; E78.5 Hyperlipidemia, unspecified
CPT/HCPCS: 36415; 51798; 71045; 80048; 80053; 81001; 82948; 83605; 83880; 84484; 85007; 85025; 85027; 85610; 85730; 87804; 87811; 93005; 94640; 96360; 96361; 96374; 97161; 99285; G0378; J2405